=== PATIENT | female | born 1975 | race Caucasian/White ===

== ENCOUNTER → 2021-10-05 | Outpatient (CLI) | payer MEDICARE, OTHER ==
[2021-10-05 17:27] LABS: HEMOGLOBIN 13.6 gm/dl (12.3-15.3); RED BLOOD COUNT 4.41 M/UL (4.00-5.10); WHITE BLOOD COUNT 6.8 K/UL (4.5-11.0)
[2021-10-05 17:50] LABS: BUN/CREATININE RATIO 19 (0-10)
[2021-10-08 16:14] LABS: A/G RATIO 1.5 (0.7-1.7); ALBUMIN 4.3 g/dL (2.9-4.4); ALPHA-1-GLOBULIN 0.3 g/dL (0.0-0.4); ALPHA-2-GLOBULIN 0.8 g/dL (0.4-1.0); GAMMA GLOBULIN 0.8 g/dL (0.4-1.8); GLOBULIN, TOTAL 2.9 g/dL (2.2-3.9); IMMUNOGLOBULIN A, QN, SERUM 107 mg/dL (87-352); IMMUNOGLOBULIN G, QN, SERUM 850 mg/dL (586-1602); IMMUNOGLOBULIN M, QN, SERUM 128 mg/dL (26-217); M-SPIKE Comment: g/dL (Not Observed); PROTEIN, TOTAL, SERUM 7.2 g/dL (6.0-8.5)
== END ==
LOC: LAB 15:21
PROVIDERS: Nurse Practitioner
DX: E53.8 Deficiency of other specified B group vitamins (principal); G56.03 Carpal tunnel syndrome, bilateral upper limbs; G40.209 Localization-related (focal) (partial) symptomatic epilepsy and epileptic syndromes with complex partial seizures, not intractable, without status epilepticus
CPT/HCPCS: 36415; 80053; 82607; 82784; 84155; 84165; 85025; 86334